=== PATIENT | female | born 1935 | race Caucasian/White ===

== ENCOUNTER 2016-06-23 17:02 | Inpatient (IN) | payer OTHER, MEDICARE ==
--- NOTE | 2016-06-23 17:31 | EDPHY ---
H & P Time Seen by Provider: 06/23/16 17:31 HPI/ROS: CHIEF COMPLAINT: Low oxygen at PCP office HISTORY OF PRESENT ILLNESS: This 80-year-old woman was sent by her primary care physician's office; she was there for follow-up from previous electrolyte abnormality. She was noted to have a difficult to obtain oxygen saturation and a question of atrial fibrillation. Patient tells me she has been mildly short of breath for the past 4 days with exertion. She gets to the bathroom but not much further. She has been feeling pretty short of breath and tired and debilitated ever since her admission in March for electrolyte abnormality. Symptoms moderate, not associated with chest pain or cough or fever. Worse past 4 days. Not positional. REVIEW OF SYSTEMS: Eye: no change in vision ENT: no sore throat Cardiac: no chest pain or syncope Pulmonary: HPI Abdomen: No vomiting or abdominal pain. Intermittent diarrhea over the last couple days but not black or bloody. Musculoskeletal: no back pain, some lower extremity swelling. Skin: no rash Neuro: no headache Constitutional: no fever : no urinary symptoms A comprehensive 10 point review of systems is otherwise negative aside from elements mentioned in the history of present illness. PAST MEDICAL HISTORY: Discharge summary dated 04/10/2016 reviewed by myself. Includes lacunar stroke, cryptogenic cirrhosis with varices, splenectomy, dementia. History and physical dated 04/07/2016 reviewed by myself includes colon cancer, appendectomy, cholecystectomy, DVT. Social history: Nonsmoker, nondrinker, . at 1733: 36.4, 97% RA sat, hr 65 General Appearance: Alert and conversant, cooperative. Eyes: No scleral icterus. ENT, Mouth: Normal mucous membranes. Respiratory: Normal respiratory effort, breath sounds equal, lungs are clear to auscultation. No wheezing or rales. Speaks in full sentences. Cardiovascular: Regular rate and rhythm. Gastrointestinal: Abdomen is soft and non tender. Neurological: Alert and oriented x3. Normally conversant. Face symmetric, normal movement and sensation in all extremities. Skin: Warm and dry, no rashes. Musculoskeletal: Bilateral 2+ pedal edema with no calf tenderness. Psychiatric: Not agitated. Emergency Department course/MDM: EKG, chest x-ray, CBC and chemistry panel to include BNP and D-dimer and troponin. 1945: D-dimer noted elevated at 18. Troponin also slightly elevated along with creatinine of 1.3, BNP greater than 1000, platelet count noted is low at 75,000 five thousand. With the patient's history of DVT and markedly elevated D-dimer I think the benefit of CT angiography for diagnosis of pulmonary embolism outweighs potential risk from renal toxicity of contrast. Discussed with the patient and consented. Discussed with [facility], heparins OK with 75k platelets as new dx. 2030: 98/62, hr 105. NS 1000ml IV. Results discussed with patient, anticoagulation discussed and consented. Admit for moderate to large volume disease, elevated troponin and BNP, BP consistently below 100 systolic. Anticoagulation ordered and started in ED. Discussed with [facility] admitting at 2029, including anticoagulant choice, Lovenox as choice, PCU for admit. Enoxaparin 50mg SQ given in ED. Smoking Status: Never smoked Constitutional: Initial Vital Signs Respiratory Rate 16 06/23/16 17:04 Blood Pressure 99/73 L 06/23/16 17:04 O2 Delivery Mode Room Air Allergies/Adverse Reactions: Penicillins Allergy (Verified 02/07/16 14:04) hives/rash Sulfa (Sulfonamide Antibiotics) Allergy (Verified 02/07/16 14:04) hives/rash Home Medications: Medication Instructions Recorded Donepezil HCl [Aricept 5 MG (*)] 5 mg PO DAILY 02/07/16 Furosemide [Lasix 20 MG (*)] 20 mg PO DAILY 02/07/16 Lactulose [Cephulac 20 gm/30 ml 20 gm PO BID #60 ml 04/10/16 oral soln (*)] Potassium Cl [Klor-Con 20 meq (*)] 20 meq PO DAILY #0 tab 04/10/16 Omeprazole 20 mg PO DAILY 06/23/16 Spironolactone [Aldactone 25 MG 25 mg PO BID 06/23/16 (*)] Medical Decision Making - Diagnostics EKG Interpretation: 12-lead EKG interpreted by me; official reading is in trace master. My interpretation is sinus rhythm rate 63 with incomplete right bundle branch block. Imaging: CT angiography of the chest reviewed personally by myself and discussed with Dr. Soliman at 8:20 p.m. shows bilateral pulmonary emboli left greater than right and multiple pulmonary infarct. Differential Diagnosis: Differential diagnosis considered for shortness of breath including but not limited to pulmonary infectious process, COPD, asthma, pulmonary embolus and congestive heart failure. Critical Care Time: Critical care time spent by me, Dr. Edwards, exclusively with the care of this patient was 35 minutes, exclusive of PA or SHOW HORSE DRIVER time and exclusive of separate procedures. The organ system at risk was cardiopulmonary and I ordered multiple diagnostics including laboratory studies and CT angiography, discussion with radiologist physician Dr. Obi Soliman, discussion with admitting hospitalist Dr. Holland, supplemental oxygen and intravenous anticoagulants; to stabilize the patient and prevent worsening of the patient's condition. - Data Points Laboratory Results: Laboratory Results 06/23/16 19:30 06/23/16 18:35 06/23/16 06/23/16 19:30 18:35 WBC 4.19 10^3/uL REJ (3.80-9.50) RBC 3.32 L 10^6/uL REJ (4.18-5.33) Hgb 11.4 L g/dL REJ (12.6-16.3) Hct 30.4 L % REJ (38.0-47.0) MCV 91.6 fL REJ (81.5-99.8) MCH 34.3 H pg REJ (27.9-34.1) MCHC 37.5 H g/dL REJ (32.4-36.7) RDW 17.3 H % REJ (11.5-15.2) Plt Count 75 L 10^3/uL REJ (150-400) MPV 11.2 fL REJ (8.7-11.7) Neut % (Auto) 66.2 % REJ (39.3-74.2) Lymph % (Auto) 20.0 % REJ (15.0-45.0) [place] % (Auto) 12.6 % REJ (4.5-13.0) Eos % (Auto) 0.2 L % REJ (0.6-7.6) Baso % (Auto) 0.5 % REJ (0.3-1.7) Nucleat RBC Rel Count 0.0 % REJ (0.0-0.2) Absolute Neuts (auto) 2.77 10^3/uL REJ (1.70-6.50) Absolute Lymphs (auto) 0.84 L 10^3/uL REJ (1.00-3.00) Absolute Monos (auto) 0.53 10^3/uL REJ (0.30-0.80) Absolute Eos (auto) 0.01 L 10^3/uL REJ (0.03-0.40) Absolute Basos (auto) 0.02 10^3/uL REJ (0.02-0.10) Absolute Nucleated RBC 0.00 10^3/uL REJ (0-0.01) Immature Gran % 0.5 % REJ (0.0-1.1) Immature Gran # 0.02 10^3/uL REJ (0.00-0.10) D-Dimer 18.06 H ug/mLFEU (0.00-0.50) Sodium 132 L mEq/L (134-144) Potassium 5.1 mEq/L (3.5-5.2) Chloride 100 mEq/L (97-110) Carbon Dioxide 20 L mEq/l (22-31) Anion Gap 12 mEq/L (8-16) BUN 19 mg/dL (7-23) Creatinine 1.3 H mg/dL (0.6-1.0) Estimated GFR 40 Glucose 96 mg/dL (70-100) Calcium 6.0 L mg/dL (8.5-10.4) Troponin I 0.041 H ng/mL (0-0.034) NT-Pro-B Natriuret Pep 1850 H pg/mL (0-450) Specimen Hemolysis 172 Medications Given: Discontinued Medications Enoxaparin Sodium (Lovenox) 50 mg SC EDNOW ONE Stop: 06/23/16 20:33 Last Admin: 06/23/16 21:28 Dose: 50 mg Sodium Chloride (Ns) 1,000 mls @ 0 mls/hr IV ONCE ONE PRN Reason: Wide Open Stop: 06/23/16 19:41 Last Admin: 06/23/16 19:47 Dose: 1,000 mls Departure - Departure Disposition: [facility] Inpatient Acute Clinical Impression: Pulmonary embolism and infarction Condition: Serious
--- NOTE | 2016-06-23 18:30 | DX ---
Chest, PA and Lateral Views, at 5:44 p.m. Clinical History: 80-year-old female in the ED with shortness of breath. Comparison Study: Chest, dated April 08, 2016. Findings: Telemetry monitoring lead lines are present. The patient's brassiere was left in place. The re are surgical clips once again seen in the left upper quadrant of the abdomen and the upper right l ateral abdomen. The cardiac silhouette size is stable and at the upper limits of normal. There is zahra e mild infiltrate and/or atelectasis at the lung bases. There is no peripheral interstitial edema or pneumothorax. The osseous structures are age-appropriate. Impression: Bibasilar subsegmental atelectasis versus infiltrates (pneumonia). Clinical correlation and followup to assure resolution are recommended.
--- NOTE | 2016-06-23 18:45 | CPEKG ---
Heart Rate: 63 RR Interval: 952 P-R Interval: 128 QRSD Interval: 112 QT Interval: 452 QTC Interval: 463 P Logan: -18 QRS Logan: -26 T Wave Logan: 122 EKG Severity - ABNORMAL ECG - EKG Impression: SINUS RHYTHM EKG Impression: INCOMPLETE RIGHT BUNDLE BRANCH BLOCK Electronically Signed By: Juan Carlos Edwards 23-Jun-2016 18:45:38
[2016-06-23 19:13] LABS: ANION GAP 12 mEq/L (8-16); CARBON DIOXIDE 20 mEq/l (22-31); CHLORIDE 100 mEq/L (97-110); CREATININE 1.3 mg/dL (0.6-1.0); GLOMERULAR FILTRATION RATE 40; GLUCOSE 96 mg/dL (70-100); POTASSIUM 5.1 mEq/L (3.5-5.2); SODIUM 132 mEq/L (134-144)
[2016-06-23 19:39] LABS: % IMMATURE GRANULYOCYTES 0.5 % (0.0-1.1); ABSOLUTE IMMATURE GRANULOCYTES 0.02 10^3/uL (0.00-0.10); ADD DIFF? NO; ADD MORPH? NO; ADD SCAN? NO; ATYPICAL LYMPHOCYTE FLAG 0 (0-99); FRAGMENT RBC FLAG 0 (0-99); HEMATOCRIT 30.4 % (38.0-47.0); HEMOGLOBIN 11.4 g/dL (12.6-16.3); LEFT SHIFT FLG 0 (0-99); MEAN CELL HEMOGLOBIN 34.3 pg (27.9-34.1); MEAN CELL HEMOGLOBIN CONCENTR. 37.5 g/dL (32.4-36.7); MEAN CELL VOLUME 91.6 fL (81.5-99.8); MEAN PLATELET VOLUME 11.2 fL (8.7-11.7); PLATELET CLUMPS FLAG 0 (0-99); PLATELET COUNT 75 10^3/uL (150-400); RED BLOOD CELL COUNT 3.32 10^6/uL (4.18-5.33); RED CELL DISTRIBUTION WIDTH 17.3 % (11.5-15.2)
[2016-06-23 19:40] LABS: LIPEMIA HEMOLYSIS FLAG 100 (0-99)
[2016-06-23] MEDS ORDERED: NS 1,000 ML IV ONE ×2 (19:40→23:05)
[2016-06-23 19:45] LABS: SPECIMEN HEMOLYSIS 172; TROPONIN I 0.041 ng/mL (0-0.034)
[2016-06-23] MEDS ORDERED: IOPAMIDOL (ISOVUE 370) 100 ML BTL IV ONE (19:46)
[2016-06-23] MEDS ORDERED: ENOXAPARIN 60 MG/0.6 ML SYR SC ONE (20:32)
--- NOTE | 2016-06-23 20:55 | CT ---
CT Pulmonary Angiogram Clinical Indications: Deep vein thrombosis, dyspnea, elevated D-dimer greater than 18. History of c olon cancer. Technique: Thinly collimated multidetector helical CT imaging was performed through the chest while 80 mL Isovue-370 were injected intravenously, without complication. The images were then transferred to an independent workstation where multiplanar and three-dimensional reconstructions were performed by the interpreting physician and reviewed at multiple windows. Dose reduction techniques were util ized. Findings Chest: Areas of pulmonary consolidation are found bilaterally, compatible with pulmonary infarctions . No pleural effusion. Portions of upper abdomen are imaged, demonstrating cholecystectomy, splenec robert, severe pancreatic atrophy, edema around the colon, and hiatal hernia. Abdominal findings are u nchanged from CT of the abdomen dated February 07, 2016. CT Pulmonary Angiogram: Numerous filling defects are scattered within pulmonary arteries, bilaterall y, the largest of which is in the left lower lobe. Overall volume of pulmonary embolism is moderate. However, right ventricle and right atrium are not enlarged, and contrast does not reflux into the i nferior vena cava. No pericardial effusion. Impressions 1. Moderate volume of bilateral pulmonary emboli, with scattered pulmonary infarctions. 2. Chronic abnormalities in the abdomen. I reviewed images with Dr. Juan Carlos Edwards at 2030 hours.
--- NOTE | 2016-06-23 22:55 | GHP ---
[f rep st] HISTORY AND PHYSICAL DATE OF ADMISSION: 06/23/2016 CHIEF COMPLAINT: Shortness of breath. HISTORY OF PRESENT ILLNESS: This is a 80-year-old female with a history of several clots in her past who presents with complaints of progressing shortness of breath over the course of the last several days. The patient reports difficulty breathing with simple tasks that otherwise would have been uncomplicated for her in the past. Noted that she did have symptomatic relief of her dyspnea with rest. The patient denies any worsening of her chronic lower extremity edema. Denies any new leg pain. Denies any pleuritic chest pain, palpitations, or lightheadedness. She does have chronic abdominal complaints which have been stable. Denied any new diarrhea, dysuria, hematuria, melena, or hematochezia. PAST MEDICAL HISTORY: 1. History of colon cancer. 2. History of peptic ulcer disease. 3. History of DVT after a trip to [facility]. 4. History of portal vein thrombosis. 5. Early dementia. 6. Warm antibody hemoglobinemia. 7. Cryptogenic cirrhosis. SOCIAL HISTORY: Negative for tobacco, alcohol, or illicit drugs. ADVANCED DIRECTIVES: The patient is do not resuscitate. Her would be her medical decision maker. REVIEW OF SYSTEMS: A 10-point review of systems is negative with the exception of that reported in the HPI. PHYSICAL EXAMINATION: VITAL SIGNS: Blood pressure in the emergency department was low. Systolics in the 90s. Heart rates in the 100-110s at presentation. Sating low at initial evaluation, 94% on my eval. Afebrile. GENERAL: This is a very thin appearing elderly female in no acute distress. HEENT: Notable for dry mucous membranes. Eye exam is negative for any icterus. CARDIAC: The patient is irregularly irregular with a quiet systolic murmur. PULMONARY: Good respiratory effort, is clear to auscultation bilaterally. GASTROINTESTINAL : Positive bowel sounds. Abdomen is soft, nontender in all 4 quadrants. MUSCULOSKELETAL: The patient has 2+ pitting edema of the lower extremities which is symmetric. SKIN: Negative for any rashes. NEUROLOGIC: She is alert and oriented x3. PSYCHIATRIC: She is pleasant and cooperative on interview and examination. LABORATORY DATA: White count 4.1, hematocrit 30.4, platelets of 75. D-dimer of 18.06. Sodium 132, creatinine 1.3. Troponin 0.041. A CTA of the chest, which I personally reviewed and interpreted, shows scattered pulmonary infarctions with what Radiology describes as moderate volume bilateral pulmonary emboli. EKG, which I personally reviewed and interpreted, shows sinus rhythm, leftward axis deviation, and an incomplete right bundle branch block. ASSESSMENT AND PLAN: This is a 80-year-old female, presenting with acute pulmonary embolus. 1. Acute pulmonary embolism. Based on the patient's reported history, it sounds as if she has had 2 preceding clotting episodes, one portal vein thrombosis and a second DVT. I believe the patient likely has an underlying clotting disorder. She does report that her mom had a history of blood clots as well. I did inform her this likely means lifelong anticoagulation for her. We will initiate Lovenox therapy this evening, place the patient on cardiac monitoring, and obtain a transthoracic echocardiogram for better visualization of her right heart. Suspect this patient will be a good candidate for novel anticoagulant if she remains stable on heparin while monitored on the PCU. 2. Acute kidney injury. Suspect likely volume related. We will give IV normal saline and recheck her renal function in the morning. 3. Dementia. We will continue her home dosing of Aricept. 4. Cryptogenic cirrhosis. Patient does appear to be on Lasix and spironolactone which we will hold in the setting of acute kidney injury. Can restart after hydration and normalization of her renal function. 5. Sinus tachycardia. We will monitor the patient on telemetry. Suspect this is related to her pulmonary embolism plus any related hypovolemia. 6. Hypotension. The patient does have lower blood pressures with systolics in the 90s to 100s. She is a small woman with a history of liver disease. This may be appropriate baselines for her. Looking past through old she has had systolics fluctuating in the 90s to the 130s. We will again monitor after fluid resuscitation and initiation of anticoagulants. If the patient remains stable overnight with monitoring, it may be safe to transition to an oral anticoagulant. 7. Prophylaxis with full-dose anticoagulation. 8. Diet: Regular. DISPOSITION: I expect greater than 2 midnights as the patient is presenting with moderate volume pulmonary embolism and vital sign abnormalities likely related to this. She requires cardiac monitoring and medication titration. Discussed the case with the emergency room physician. Patient will be triaged to the PCU for care. /[id number]/MODL and [id number], 06/23/16, [facility]
[2016-06-23] MEDS ORDERED: ACETAMINOPHEN 325 MG TAB PO PRN (23:05)
[2016-06-23] MEDS ORDERED: ONDANSETRON 4 MG/2 ML VIAL IVP PRN (23:05)
[2016-06-23] MEDS ORDERED: ONDANSETRON DISINTEGRATING 4 MG TAB PO PRN (23:05)
[2016-06-24 08:02] LABS: ANION GAP 11 mEq/L (8-16); CARBON DIOXIDE 21 mEq/l (22-31); CHLORIDE 105 mEq/L (97-110); CREATININE 1.2 mg/dL (0.6-1.0); GLOMERULAR FILTRATION RATE 43; GLUCOSE 74 mg/dL (70-100); SODIUM 137 mEq/L (134-144)
[2016-06-24 08:23] LABS: CALCIUM 5.7 mg/dL (8.5-10.4); POTASSIUM 2.4 mEq/L (3.5-5.2)
[2016-06-24] MEDS: DONEPEZIL HCL 5 MG TAB PO SCH (09:17)
[2016-06-24] MEDS: PANTOPRAZOLE SODIUM 40 MG TAB PO SCH (09:17)
[2016-06-24] MEDS: LACTULOSE 20 GM/30 ML UDCUP PO SCH ×2 (09:19→19:33)
[2016-06-24] MEDS ORDERED: ENOXAPARIN 40 MG/0.4 ML SYR SC SCH (09:30)
[2016-06-24] MEDS ORDERED: WARFARIN SODIUM 2.5 MG TAB PO ONE (10:08)
--- NOTE | 2016-06-24 10:48 | ECHO ---
[id number] + + [id number] : : [place] [id number] : : [phone] + + Adult Echocardiographic Report + ------+ :Name: Nadira QUEZADA Date: 06/24/2016 08:33 AM BP: 88/53 mmHg : : Hospital Admission Number: [id number] Raymondallison n: 213: :: 1935 Gender: Female Height: 64 in : :Age: 80 yrs Race: WH Weight: 105 lb : :Reason For Study: eval for rt heart strain : : BSA: 1.5 meters 2 : :History: new Pul embolism : + ------+ MMode/2D Measurements & Calculations IVSd: 1.1 cm RVDd: 2.7 cm FS: 46.1 % Ao root diam: LVPWd: 0.85 cm LVIDd: 4.1 cm EDV(Teich): 75.1 ml3.1 cm LVIDs: 2.2 cm ESV(Teich): 16.6 mlLA dimension: EF(Teich): 77.9 % 3.6 cm LVOT diam: 2.0 cmLVLd ap4: 7.7 cm SV(MOD-sp4): LVOT area: EDV(MOD-sp4): 67.0 ml 3.1 cm2 102.0 ml LVLs ap4: 6.7 cm ESV(MOD-sp4): 35.0 ml EF(MOD-sp4): 65.7 % Normal Measurement Values: + + :LVIDd (3.5-5.7cm) IVSd (0.6-1.1cm) LVPWd (0.6-1.1cm) Aortic Root (2.0-3.7cm)Left Atrium (1.5-4.0cm): :LV Vol(d) (76-115ml) LV Vol(s) (29-48ml) Ejec Fraction (50-65%)PV Andrae (0.6- 1.2m/s) TV Andrae (0.4-1.0m/s) : :MV E Andrae (0.8-1.0m/s)MV A Andrae (0.3-1.0m/s)LVOT Andrae (0.7-1.2m/s) Asc Ao Andrae ( 0.9-1.8m/s) : + + Doppler Measurements & Calculations MV E max andrae: Ao V2 max: LV V1 max: PA V2 max: 72.6 cm/sec 123.0 cm/sec 111.0 cm/sec 82.4 cm/sec MV A max andrae: Ao max PG: LV V1 max PG: PA max P.9 cm/sec 6.1 mmHg 4.9 mmHg 2.7 mmHg MV E/A: 0.88 SKIP(V,D): 2.8 cm2 MV dec time: 0.23 sec TR max andrae: 278.0 cm/sec TR max P.9 mmHg RAP systole: 5.0 mmHg RVSP(TR): 35.9 mmHg Left Ventricle The left ventricle is normal in size and function. There is normal left ventricular wall thickness. There is Doppler evidence for diastolic dysfunction. Ejection Fraction = 65-70%. No regional wall motion abnormalities noted. Right Ventricle The right ventricle is normal in size and function. Atria The left atrium is mildly dilated. The Left Atrial Volume is 41 ml/m2. Right atrial size is normal. Mitral Valve The mitral valve leaflets appear thickened, but open well. There is no mitral valve stenosis. There is trace to mild mitral regurgitation. Tricuspid Valve The tricuspid valve is normal in structure and function. There is no tricuspid stenosis. There is mild to moderate tricuspid regurgitation. Right ventricular systolic pressure is 36mmHg. There is Doppler evidence for mild pulmonary hypertension. Aortic Valve The aortic valve is trileaflet. There is no aortic stenosis. There is no aortic insufficiency. Pulmonic Valve The pulmonic valve is not well visualized. Great Vessels The aortic root is normal size. Pericardium/Pleural There is no pericardial effusion. Conclusion A two-dimensional transthoracic echocardiogram with M-mode and Doppler was performed. The left ventricle is normal in size and function. There is Doppler evidence for diastolic dysfunction. Ejection Fraction = 65-70%. The left atrium is mildly dilated. The Left Atrial Volume is 41 ml/m2. There is trace to mild mitral regurgitation. There is mild to moderate tricuspid regurgitation. Right ventricular systolic pressure is 36mmHg. There is Doppler evidence for mild pulmonary hypertension. Final Reading Physician: Nadira Fregoso signed on 06/24/2016 10:46 AM Ordering Physician: Leodan Couch Performed By: Ashley Tejeda
[2016-06-24 11:03] LABS: % IMMATURE GRANULYOCYTES 0.3 % (0.0-1.1); ABSOLUTE IMMATURE GRANULOCYTES 0.01 10^3/uL (0.00-0.10); ADD DIFF? NO; ADD MORPH? NO; ADD SCAN? NO; ATYPICAL LYMPHOCYTE FLAG 20 (0-99); FRAGMENT RBC FLAG 0 (0-99); HEMATOCRIT 33.5 % (38.0-47.0); HEMOGLOBIN 12.4 g/dL (12.6-16.3); LEFT SHIFT FLG 0 (0-99); LIPEMIA HEMOLYSIS FLAG 90 (0-99); MEAN CELL HEMOGLOBIN 34.8 pg (27.9-34.1); MEAN CELL VOLUME 94.1 fL (81.5-99.8); MEAN PLATELET VOLUME 11.7 fL (8.7-11.7); PLATELET CLUMPS FLAG 0 (0-99); PLATELET COUNT 123 10^3/uL (150-400); RED BLOOD CELL COUNT 3.56 10^6/uL (4.18-5.33); RED CELL DISTRIBUTION WIDTH 17.8 % (11.5-15.2)
[2016-06-24 11:19] LABS: ANION GAP 12 mEq/L (8-16); CALCIUM 5.8 mg/dL (8.5-10.4); CARBON DIOXIDE 21 mEq/l (22-31); CHLORIDE 104 mEq/L (97-110); CREATININE 1.2 mg/dL (0.6-1.0); GLOMERULAR FILTRATION RATE 43; GLUCOSE 101 mg/dL (70-100); SODIUM 137 mEq/L (134-144)
[2016-06-24 11:23] LABS: POTASSIUM 2.5 mEq/L (3.5-5.2)
[2016-06-24] MEDS ORDERED: POTASSIUM CL 20 MEQ TAB PO ONE ×2 (11:28→14:00)
[2016-06-24 12:36] LABS: BILIRUBIN,TOTAL 1.9 mg/dL (0.1-1.4); BILIRUBIN-CONJUGATED 0.7 mg/dL (0.0-0.5); BILIRUBIN-UNCONJUGATED 1.2 mg/dL (0.0-1.1); TOTAL PROTEIN 5.8 g/dL (6.3-8.2)
[2016-06-24] MEDS: ENOXAPARIN 80 MG/0.8 ML SYR SC SCH (14:36)
[2016-06-24] MEDS ORDERED: CALCIUM GLUCONATE 50 ML IV ONE (14:51)
[2016-06-24 15:30] LABS: CARBON DIOXIDE 20 mEq/l (22-31); CHLORIDE 104 mEq/L (97-110); CREATININE 1.2 mg/dL (0.6-1.0); GLOMERULAR FILTRATION RATE 43; GLUCOSE 100 mg/dL (70-100); SODIUM 137 mEq/L (134-144)
[2016-06-24 15:48] LABS: ANION GAP 13 mEq/L (8-16)
[2016-06-24 15:49] LABS: CALCIUM 5.6 mg/dL (8.5-10.4); MAGNESIUM 0.4 mg/dL (1.6-2.3); POTASSIUM 2.4 mEq/L (3.3-5.0)
[2016-06-24] MEDS ORDERED: ALTEPLASE 2 MG VIAL IVP PRN (16:25)
[2016-06-24] MEDS ORDERED: MAGNESIUM SULF 2 GM/WATER 50 ML IV ONE (16:36)
[2016-06-24] MEDS ORDERED: PROTOCOL MAGNESIUM 1 DOSE IV PRN (16:38)
[2016-06-24] MEDS ORDERED: PROTOCOL CALCIUM 1 DOSE IV PRN (16:38)
[2016-06-24] MEDS ORDERED: PROTOCOL POTASSIUM 1 DOSE MISC PRN (16:38)
--- NOTE | 2016-06-24 16:50 | HOSPPROG ---
Hospitalist Progress Note Assessment/Plan: * acute pulmonary embolism * since she has cirrhosis and has had varices we do need to monitor her lower more closely * would use Coumadin so that it can be easily reversed * her creatinine is borderline for dosing Lovenox but will continue Lovenox a will 1.5 milligrams/kilogram as recommended by pharmacy * echocardiogram does not show significant pulmonary hypertension * severe hypokalemia and hypomagnesemia and hypo-calcemia * was admitted in the past for this. * I am sure she probably chronically has these abnormalities * placing PICC line since she has no IV access and putting on aggressive electrolyte replacement protocol * history of cirrhosis * patient and does not seem to know that she has cirrhosis * pancytopenia * patient is high risk * DNR Subjective: feels pretty good. No chest pain does feel some shortness of breath Objective: Vital Signs Temp Pulse Resp BP Pulse Ox 36.4 C 77 21 H 90/58 L 99 06/24/16 11:34 06/24/16 11:34 06/24/16 11:34 06/24/16 11:34 06/24/16 11:34 Laboratory Results 06/24/16 10:50 06/24/16 14:52 06/23/16 06/24/16 06/25/16 05:59 05:59 05:59 Intake Total 600 1450 Output Total 650 Balance 600 800 - Physical Exam Constitutional: no apparent distress, appears nourished, not in pain Eyes: anicteric sclera, EOMI Ears, Nose, Mouth, Throat: moist mucous membranes, hearing normal, ears appear normal Cardiovascular: irregularly irregular, edema ( 1+) Respiratory: no respiratory distress, no rales or rhonchi, clear to auscultation Gastrointestinal: normoactive bowel sounds, soft, non-tender abdomen, no palpable masses Neurologic: AAOx3 Psychiatric: interacting appropriately, not anxious, not encephalopathic, thought process linear ICD10 Worksheet Patient Problems: Problems Problem Status Diagnosed Pulmonary embolism and infarction Acute Abdominal pain Acute Altered mental status Acute Elevated troponin Acute Hypokalemia Acute Renal insufficiency, mild Acute
[2016-06-24] MEDS: MAGNESIUM SULF 2 GM/WATER 50 ML IV SCH ×2 (17:24→19:03)
[2016-06-24] MEDS: POTASSIUM Cl (KCl) 100 ML IV SCH ×5 (19:56→23:13)
--- NOTE | 2016-06-24 19:56 | IR ---
Imaging Guided Peripherally Inserted Central Catheter History: Pulmonary embolism. Severe electrolyte abnormality. Technique: Following informed consent, the right arm was prepped and draped in sterile fashion. All e lements of maximal sterile barrier technique including cap, mask, sterile gown, sterile gloves, large sterile sheet, hand hygiene, and 2% chlorhexidine for cutaneous antisepsis, followed. Ultrasound tra nsducer was placed in sterile sleeve and sterile coupling gel was used. Ultrasound evaluation of pote ntial access sites was performed. After successfully identifying a patent vessel of adequate size, 1% Xylocaine was used for local anesthetic. Ultrasound guidance was used to puncture the brachial vein with a 21-gauge needle. 0.018 measuring wire was passed centrally under fluoroscopic control. A skin patricia with scalpel blade was followed by removing the access needle. A 5.5 [place] peel-away sheath w as followed by a 5 [place] double-lumen central catheter , trimmed to 40 cm length. The tip of the ca theter was positioned centrally and the guidewire removed. AP fluoroscopic spot image was obtained in inspiration. The catheter irrigated easily. The hub of the catheter was secured to the skin using a StatLock adhesive device, and a sterile dressing was applied. Fluoroscopy time in minutes: 0.5 . Estimated exposure in mGy: 1.5 . Findings: The tip of the central catheter terminates at the junction of the superior vena cava and th e right atrium. Right lung is partially opacified. Impression: 5 [place] double lumen peripherally inserted central catheter is ready to use. - - - - - - - - - - - - - - - - - - - - - - - - - - - - - - - - - - - - - - - - - (Cross-cutting measures: Current medications were listed in the medical record, including all known prescriptions, [id number] medications, herbal medications, and nutritional supplements. The pat ient does not smoke. )
[2016-06-25 00:50] LABS: MAGNESIUM 1.8 mg/dL (1.6-2.3); POTASSIUM 3.5 mEq/L (3.5-5.2)
[2016-06-25] MEDS: POTASSIUM Cl (KCl) 50 ML IV SCH ×3 (02:25→03:23)
[2016-06-25 05:14] LABS: IONIZED CALCIUM 0.94 MMOL/L (1.12-1.30)
[2016-06-25 05:15] LABS: INR 2.36 (0.83-1.16)
[2016-06-25 05:23] LABS: % IMMATURE GRANULYOCYTES 0.4 % (0.0-1.1); ABSOLUTE IMMATURE GRANULOCYTES 0.02 10^3/uL (0.00-0.10); ADD DIFF? NO; ADD MORPH? NO; ADD SCAN? NO; ATYPICAL LYMPHOCYTE FLAG 0 (0-99); FRAGMENT RBC FLAG 20 (0-99); HEMOGLOBIN 9.5 g/dL (12.6-16.3); LEFT SHIFT FLG 0 (0-99); LIPEMIA HEMOLYSIS FLAG 90 (0-99); MEAN CELL HEMOGLOBIN 34.3 pg (27.9-34.1); MEAN CELL HEMOGLOBIN CONCENTR. 36.5 g/dL (32.4-36.7); MEAN CELL VOLUME 93.9 fL (81.5-99.8); MEAN PLATELET VOLUME 11.9 fL (8.7-11.7); PLATELET CLUMPS FLAG 0 (0-99); PLATELET COUNT 126 10^3/uL (150-400); RED BLOOD CELL COUNT 2.77 10^6/uL (4.18-5.33); RED CELL DISTRIBUTION WIDTH 17.5 % (11.5-15.2)
[2016-06-25 05:31] LABS: ANION GAP 6 mEq/L (8-16); CALCIUM 6.1 mg/dL (8.5-10.4); CARBON DIOXIDE 20 mEq/l (22-31); CHLORIDE 111 mEq/L (97-110); CREATININE 1.1 mg/dL (0.6-1.0); GLOMERULAR FILTRATION RATE 48; GLUCOSE 69 mg/dL (70-100); MAGNESIUM 1.9 mg/dL (1.6-2.3); POTASSIUM 3.9 mEq/L (3.5-5.2); SODIUM 137 mEq/L (134-144)
[2016-06-25] MEDS ORDERED: CALCIUM GLUCONATE 50 ML IV ONE (06:55)
[2016-06-25] MEDS ORDERED: POTASSIUM Cl (KCl) 50 ML IV ONE (06:56)
[2016-06-25] MEDS: DONEPEZIL HCL 5 MG TAB PO SCH (09:23)
[2016-06-25] MEDS: PANTOPRAZOLE SODIUM 40 MG TAB PO SCH (09:23)
--- NOTE | 2016-06-25 14:08 | HOSPPROG ---
Hospitalist Progress Note Assessment/Plan: * acute pulmonary embolism * since she has cirrhosis and has had varices we do need to monitor her lower more closely * cont lovenox and coumadin * decrease coumadin to 1mg daily and monitor inr daily * dc lovenox tomorrow since INR is already therapeutic * severe hypokalemia and hypomagnesemia and hypo-calcemia (improved) * dc protocols and monitor * history of cirrhosis * patient and does not seem to know that she has cirrhosis * pancytopenia * patient is high risk * DNR Subjective: no chest pain. no sob. no obvious bleeding Objective: Vital Signs Temp Pulse Resp BP Pulse Ox 36.4 C 86 14 102/56 L 89 L 06/25/16 11:26 06/25/16 11:26 06/25/16 11:26 06/25/16 11:26 06/25/16 12:26 Laboratory Results 06/25/16 04:50 06/25/16 04:50 06/24/16 06/25/16 06/26/16 05:59 05:59 05:59 Intake Total 600 2615 Output Total 650 Balance 600 1965 PT 26.0 SEC (12.0-15.0) H 06/25/16 04:50 INR 2.36 (0.83-1.16) H 06/25/16 04:50 - Physical Exam Constitutional: no apparent distress, appears nourished, not in pain Cardiovascular: regular rate and rhythym, no murmur, rub, or gallop Respiratory: no respiratory distress, no rales or rhonchi, clear to auscultation Gastrointestinal: normoactive bowel sounds, soft, non-tender abdomen, no palpable masses Neurologic: AAOx3, sensation intact bilaterally ICD10 Worksheet Patient Problems: Problems Problem Status Diagnosed Pulmonary embolism and infarction Acute Abdominal pain Acute Altered mental status Acute Elevated troponin Acute Hypokalemia Acute Renal insufficiency, mild Acute
[2016-06-25] MEDS: ENOXAPARIN 80 MG/0.8 ML SYR SC SCH (14:38)
[2016-06-25] MEDS: LACTULOSE 20 GM/30 ML UDCUP PO SCH ×2 (14:41→19:24)
[2016-06-25] MEDS ORDERED: WARFARIN SODIUM 2.5 MG TAB PO SCH ×2 (16:00)
[2016-06-25] MEDS ORDERED: WARFARIN SODIUM 1 MG TAB PO SCH (16:00)
[2016-06-26 01:37] VITALS: TEMP 97.9
[2016-06-26 06:33] LABS: IONIZED CALCIUM 1.06 MMOL/L (1.12-1.30)
[2016-06-26 06:34] LABS: % IMMATURE GRANULYOCYTES 0.5 % (0.0-1.1); ABSOLUTE IMMATURE GRANULOCYTES 0.03 10^3/uL (0.00-0.10); ADD DIFF? NO; ADD MORPH? NO; ADD SCAN? NO; ATYPICAL LYMPHOCYTE FLAG 0 (0-99); FRAGMENT RBC FLAG 0 (0-99); HEMOGLOBIN 9.6 g/dL (12.6-16.3); LEFT SHIFT FLG 0 (0-99); LIPEMIA HEMOLYSIS FLAG 90 (0-99); MEAN CELL HEMOGLOBIN 34.2 pg (27.9-34.1); MEAN CELL HEMOGLOBIN CONCENTR. 36.9 g/dL (32.4-36.7); MEAN CELL VOLUME 92.5 fL (81.5-99.8); MEAN PLATELET VOLUME 11.2 fL (8.7-11.7); PLATELET CLUMPS FLAG 0 (0-99); PLATELET COUNT 131 10^3/uL (150-400); RED BLOOD CELL COUNT 2.81 10^6/uL (4.18-5.33); RED CELL DISTRIBUTION WIDTH 17.6 % (11.5-15.2)
[2016-06-26 06:43] LABS: INR 4.02 (0.83-1.16); PROTIME(PATIENT) 39.9 SEC (12.0-15.0)
[2016-06-26 07:27] LABS: ALANINE AMINOTRANSFERASE 26 IU/L (9-52); ALBUMIN 1.7 g/dL (3.5-5.0); ALKALINE PHOSPHATASE 83 IU/L (38-126); ANION GAP 6 mEq/L (8-16); ASPARTATE AMINOTRANSFERASE 22 IU/L (14-46); BILIRUBIN,TOTAL 1.5 mg/dL (0.1-1.4); CALCIUM 7.2 mg/dL (8.5-10.4); CARBON DIOXIDE 21 mEq/l (22-31); CHLORIDE 112 mEq/L (97-110); GLOMERULAR FILTRATION RATE 53; GLUCOSE 76 mg/dL (70-100); POTASSIUM 3.8 mEq/L (3.5-5.2); SODIUM 139 mEq/L (134-144)
[2016-06-26 08:34] VITALS: BP 90/50; PULSE 82; RESP 18; O2SAT 95
[2016-06-26] MEDS: PANTOPRAZOLE SODIUM 40 MG TAB PO SCH (08:51)
[2016-06-26] MEDS: DONEPEZIL HCL 5 MG TAB PO SCH (08:51)
[2016-06-26] MEDS ORDERED: CALCIUM GLUCONATE 50 ML IV ONE (08:54)
--- NOTE | 2016-06-26 10:56 | PDIAF ---
- Diagnosis Diagnosis: acute pe Code Status: Do Not Resuscitate - Medication Management Discharge Medications: Medications to Continue on Transfer Donepezil HCl [Aricept 5 MG (*)] 5 mg PO DAILY 02/07/16 [Last Taken 06/23/16] Furosemide [Lasix 20 MG (*)] 20 mg PO DAILY 02/07/16 [Last Taken 06/23/16] Potassium Cl [Klor-Con 20 meq (*)] 20 meq PO DAILY #0 tab 04/10/16 [Last Taken 06/23/16] Omeprazole 20 mg PO DAILY 06/23/16 [Last Taken 06/23/16] Spironolactone [Aldactone 25 MG (*)] 25 mg PO BID 06/23/16 [Last Taken 06/23/16 09:00] Warfarin Sodium 0.5 mg PO DAILY #14 tablet 06/26/16 [Last Taken Unknown] Discharge Medications: Refer to the Discharge Home Medication list for PRN reason. - Orders Services needed: Registered Nurse, Physical Therapy Diet Recommendation: ADA 1800 consistent carb Diet Texture: Regular Texture Diet - Follow Up Care Current Providers and Referrals: Socorro Ospina MD [Primary Care Provider] - As per Instructions
--- NOTE | 2016-06-26 11:39 | PDIAF ---
- Diagnosis Diagnosis: acute pe Code Status: Do Not Resuscitate - Medication Management Discharge Medications: Medications to Continue on Transfer Donepezil HCl [Aricept 5 MG (*)] 5 mg PO DAILY 02/07/16 [Last Taken 06/23/16] Furosemide [Lasix 20 MG (*)] 20 mg PO DAILY 02/07/16 [Last Taken 06/23/16] Potassium Cl [Klor-Con 20 meq (*)] 20 meq PO DAILY #0 tab 04/10/16 [Last Taken 06/23/16] Omeprazole 20 mg PO DAILY 06/23/16 [Last Taken 06/23/16] Spironolactone [Aldactone 25 MG (*)] 25 mg PO BID 06/23/16 [Last Taken 06/23/16 09:00] Warfarin Sodium 0.5 mg PO DAILY #14 tablet 06/26/16 [Last Taken Unknown] Discharge Medications: Refer to the Discharge Home Medication list for PRN reason. - Orders Services needed: Registered Nurse, Physical Therapy Diet Recommendation: ADA 1800 consistent carb Diet Texture: Regular Texture Diet - Labs/Radiology PT/INR Date: 06/27/16 (results to pcp) - Follow Up Care Current Providers and Referrals: Socorro Ospina MD [Primary Care Provider] - As per Instructions
--- NOTE | 2016-06-26 11:45 | GDS ---
[f rep st] DISCHARGE SUMMARY DISCHARGE DIAGNOSES: 1. Acute pulmonary embolism. 2. History of cryptogenic cirrhosis. 3. Severe hypokalemia. 4. Severe hypomagnesemia. 5. Pancytopenia. HOSPITAL COURSE: Acute pulmonary embolism: The patient presented to the emergency department on 02/2017 reporting shortness of breath. Subsequently, a CT angio of the chest was done on admission t hat showed moderate volume bilateral pulmonary emboli with scattered pulmonary infarctions. She was subsequently started on Lovenox and Coumadin. The patient's INR is chronically elevated due to her cirrhosis; and per review of records, it appears that her INR was 1.8 in March 2016. She received 2.5 mg of warfarin on the , which brought he r INR up to 2.36. She was given 1 mg of Coumadin on the , which brought her INR up to 4 on the ay of discharge. On discharge, the patient has no obvious signs of bleeding. She was instructed to not take warfarin today and plans to follow up at the [facility] tomorrow; at which time, if her INR is less than 3, I have suggested that she start 0.5 mg of warfarin. She will obviously need very close monitoring of her INR given her liver disease. PERTINENT LABS AND STUDIES DONE THIS HOSPITAL STAY: CT angio of the chest done 06/23/2016, refer to report. Echocardiogram done 06/24/2016 showed an ejection fraction of 65% to 70% with mild to modera te tricuspid regurgitation and Doppler evidence for mild pulmonary hypertension. Refer to report for full details. PHYSICAL EXAM: VITAL SIGNS: On day of discharge, blood pressure 90/50, pulse of 82, respiratory rat e 18, O2 sat 95% on room air, temperature afebrile. GENERAL: No acute distress. HEART: S1, S2. L UNGS: Clear. ABDOMEN: Soft. EXTREMITIES: No edema. DISCHARGE MEDICATIONS: [facility] for full deta ils. Below is a preliminary list. New medications on hospital discharge: Warfarin 0.5 mg daily, to be started once her INR is less alyssa n 3. Home medication that has been put on hold: Lactulose. All other home medications were continued at her usual home dosages. DISCHARGE INSTRUCTIONS: The patient will be discharged from the hospital, where she should follow up with the [facility] as directed. She should also follow up with her primary care provider for routine hospital followup in the next week. It does appear that the patient has been having some pro blems with diarrhea, which are likely related to her lactulose. If she is unable to tolerate lactulo se, it may be reasonable to switch her to rifaximin for long-term treatment. However, this medicatio n can be quite costly. /[id number]/MODL
[2016-06-26] MEDS: LACTULOSE 20 GM/30 ML UDCUP PO SCH (12:02)
== END 2016-06-26 13:08 | disposition home health service (06) | DRG 176 ==
LOC: F2W 21:50
PROVIDERS: ADMIT Hospitalist; ATTEND Internal Medicine
PROC: 02HV33Z Insertion of Infusion Device into Superior Vena Cava, Percutaneous Approach (ICD-10-PCS; principal; 2016-06-24)
DX: I26.99 Other pulmonary embolism without acute cor pulmonale (principal); K74.60 Unspecified cirrhosis of liver; E83.51 Hypocalcemia; E87.6 Hypokalemia; E83.42 Hypomagnesemia; D61.818 Other pancytopenia; I95.9 Hypotension, unspecified; F03.90 Unspecified dementia, unspecified severity, without behavioral disturbance, psychotic disturbance, mood disturbance, and anxiety; Z86.73 Personal history of transient ischemic attack (TIA), and cerebral infarction without residual deficits; Z86.718 Personal history of other venous thrombosis and embolism; Z85.038 Personal history of other malignant neoplasm of large intestine; Z87.11 Personal history of peptic ulcer disease
CPT/HCPCS: 36415-PO; 97116-GP; 97162-GP; C1751; G0463-PO; G8978-GP-CK; G8979-GP-CI; G8980-GP-CI; J0610; J1650; Q9967